=== PATIENT | male | born 1945 | race Caucasian/White ===

== ENCOUNTER 2017-12-27 02:57 | Emergency (ER) | payer MEDICARE, OTHER ==
[~2017-12-27] VITALS: Ht 188 cm; Wt 91.0 kg
[~2017-12-27 02:57] MED LIST: Z.0.NO CURRENT MEDS
[2017-12-27 03:08] VITALS: BP 124/70; PULSE 58; RESP 18; TEMP 98.1; O2SAT 98
--- NOTE | 2017-12-27 04:06 | PD ---
HPI Chief Complaint: Abdominal Pain Time Seen by Provider: 04:02 Travel History International Travel<30 days: No Contact w/Intl Traveler<30days: No Traveled to known affect area: No History of Present Illness HPI Patient is a 72-year-old male presents emergency department for evaluation of right lower quadrant abdominal pain. No nausea no vomiting. States started last night he has been fairly severe, no alleviating or exacerbating factors elicited. Patient states never had any surgeries in his belly but her that this pain could be from his appendix and wanted to be checked out for. Symptoms are moderate, right lower quadrant, no radiation, associated signs and symptoms as above PFSH Past Medical History Medical History: Denies Significant Hx Blood Disorders: No Cancer: No Cardiovascular Problems: No High Cholesterol: Yes Diminished Hearing: No Endocrine: No Genitourinary: No Immune Disorder: No Musculoskeletal: Yes Neurologic: No Respiratory: No Tetanus Vaccination: Unknown Influenza Vaccination: No Past Surgical History Abdominal Surgery: Yes (COLON RESECTION,HERNIA REPAIR) Other Surgery: Yes (vasectomy) Social History Alcohol Use: Yes (rare occ) Tobacco Use: Yes Substance Use: No Allergies-Medications (Allergen,Severity, Reaction): Coded Allergies: cephalexin (Unverified Allergy, Severe, headache, 12/27/17) Reported Meds & Prescriptions Reported Meds & Active Scripts Active Reported No Current Meds (Miscellaneous Medication) Misc Review of Systems Except as stated in HPI: all other systems reviewed are Neg Physical Exam Narrative GENERAL: Well-developed well-nourished, no obvious distress. SKIN: Focused skin assessment warm/dry. HEAD: Atraumatic. Normocephalic. EYES: Pupils equal and round. No scleral icterus. No injection or drainage. ENT: No nasal bleeding or discharge. Mucous membranes pink and moist. NECK: Trachea midline. No JVD. CARDIOVASCULAR: Regular rate and rhythm. No murmur appreciated. RESPIRATORY: No accessory muscle use. Clear to auscultation. Breath sounds equal bilaterally. GASTROINTESTINAL: Abdomen soft, minimally tender in the right lower, nondistended. Hepatic and splenic margins not palpable. No rebound no percussive tenderness. Table mom negative. CVA tenderness negative Genitourinary: Grossly normal male genitalia nontender peer MUSCULOSKELETAL: No obvious deformities. No clubbing. No cyanosis. No edema. NEUROLOGICAL: Awake and alert. No obvious cranial nerve deficits. Motor grossly within normal limits. Normal speech. PSYCHIATRIC: Appropriate mood and affect; insight and judgment normal. Data Data Last Documented VS Vital Signs Date Time Temp Pulse Resp B/P (MAP) Pulse Ox O2 Delivery O2 Flow Rate FiO2 12/27/17 09:20 Orders Orders Complete Blood Count With Diff (12/27/17 04:02) Comprehensive Metabolic Panel (12/27/17 04:02) Ct Abd/Pel W Iv Contrast(Rout) (12/27/17 04:02) Iv Access Insert/Monitor (12/27/17 04:02) Ecg Monitoring (12/27/17 04:02) Oximetry (12/27/17 04:02) Sodium Chloride 0.9% Flush (Ns Flush) (12/27/17 04:15) Iohexol 350 Inj (Omnipaque 350 Inj) (12/27/17 06:11) Urinalysis - C+S If Indicated (12/27/17 07:06) Ed Discharge Order (12/27/17 08:44) Labs Laboratory Tests Test 12/27/17 04:10 12/27/17 07:30 White Blood Count 7.1 TH/MM3 Red Blood Count 4.82 MIL/MM3 Hemoglobin 16.1 GM/DL Hematocrit 45.8 % Mean Corpuscular Volume 95.0 FL Mean Corpuscular Hemoglobin 33.3 PG Mean Corpuscular Hemoglobin Concent 35.1 % Red Cell Distribution Width 14.2 % Platelet Count 174 TH/MM3 Mean Platelet Volume 7.5 FL Neutrophils (%) (Auto) 58.6 % Lymphocytes (%) (Auto) 32.6 % Monocytes (%) (Auto) 6.8 % Eosinophils (%) (Auto) 1.5 % Basophils (%) (Auto) 0.5 % Neutrophils # (Auto) 4.2 TH/MM3 Lymphocytes # (Auto) 2.3 TH/MM3 Monocytes # (Auto) 0.5 TH/MM3 Eosinophils # (Auto) 0.1 TH/MM3 Basophils # (Auto) 0.0 TH/MM3 CBC Comment DIFF FINAL Differential Comment Blood Urea Nitrogen 20 MG/DL Creatinine 0.92 MG/DL Random Glucose 93 MG/DL Total Protein 7.0 GM/DL Albumin 3.7 GM/DL Calcium Level 9.2 MG/DL Alkaline Phosphatase 82 U/L Aspartate Amino Transf (AST/SGOT) 13 U/L Alanine Aminotransferase (ALT/SGPT) 16 U/L Total Bilirubin 0.3 MG/DL Sodium Level 141 MEQ/L Potassium Level 4.2 MEQ/L Chloride Level 107 MEQ/L Carbon Dioxide Level 25.8 MEQ/L Anion Gap 8 MEQ/L Estimat Glomerular Filtration Rate 81 ML/MIN Urine Color YELLOW Urine Turbidity CLEAR Urine pH 7.5 Urine Specific [place] GREATER THAN 1.050 Urine Protein TRACE mg/dL Urine Glucose (UA) NEG mg/dL Urine Ketones NEG mg/dL Urine Occult Blood NEG Urine Nitrite NEG Urine Bilirubin NEG Urine Urobilinogen LESS THAN 2.0 MG/DL Urine Leukocyte Esterase NEG Urine RBC 1 /hpf Urine WBC 5 /hpf Microscopic Urinalysis Comment CULT NOT INDICATED MDM Medical Decision Making Medical Screen Exam Complete: Yes Emergency Medical Condition: Yes Differential Diagnosis Musculoskeletal pain, inguinal pain, hernia, appendicitis. Narrative Course Patient room to the emergency department, he appears well in no obvious distress. CAT scan read pending I anticipate negative and afterwards can go home with symptomatic management. Discussed with oncoming provider at 0700. Follow-up CAT scan reviewed and disposition appropriately Phil Grayson MD Dec 27, 2017 04:06
[2017-12-27 04:09] VITALS: O2SAT 98
[2017-12-27 04:15] VITALS: BP 121/73; PULSE 52; RESP 14; O2SAT 96
[2017-12-27] MEDS ORDERED: SODIUM CHLORIDE 0.9% FLUSH 10 ML FLUSH IV FLUSH PRN (04:15)
[2017-12-27 04:38] LABS: AUTOMATED NEUTROPHIL # 4.2 TH/MM3 (1.8-7.7); BASOPHIL % 0.5 % (0.0-2.0); EOSINOPHIL # 0.1 TH/MM3 (0-0.4); EOSINOPHIL % 1.5 % (0.0-4.0); HEMATOCRIT 45.8 % (39.0-51.0); HEMOGLOBIN 16.1 GM/DL (13.0-17.0); LYMPH % 32.6 % (9.0-44.0); LYMPHOCYTE # 2.3 TH/MM3 (1.0-4.8); MEAN CORPUSCULAR HEMOGLOBIN 33.3 PG (27.0-34.0); MEAN CORPUSCULAR HGB CONC 35.1 % (32.0-36.0); MEAN PLATELET VOLUME 7.5 FL (7.0-11.0); MONO % 6.8 % (0.0-8.0); MONOCYTE # 0.5 TH/MM3 (0-0.9); NEUT % 58.6 % (16.0-70.0); PLATELET COUNT 174 TH/MM3 (150-450); RED BLOOD COUNT 4.82 MIL/MM3 (4.50-5.90); RED CELL DISTRIBUTION WIDTH 14.2 % (11.6-17.2); WHITE BLOOD COUNT 7.1 TH/MM3 (4.0-11.0)
[2017-12-27 04:55] LABS: ALBUMIN 3.7 GM/DL (3.4-5.0); ALT (GPT) 16 U/L (12-78); AST (GOT) 13 U/L (15-37); BICARBONATE 25.8 MEQ/L (21.0-32.0); BLOOD UREA NITROGEN 20 MG/DL (7-18); CALCIUM 9.2 MG/DL (8.5-10.1); CHLORIDE 107 MEQ/L (98-107); CREATININE 0.92 MG/DL (0.60-1.30); GLOMERULAR FILTRATION RATE 81 ML/MIN (>89); GLUCOSE,RANDOM 93 MG/DL (74-106); SODIUM (NA) 141 MEQ/L (136-145)
[2017-12-27 04:58] LABS: ALKALINE PHOSPHATASE 82 U/L (45-117); TOTAL BILIRUBIN ADULT 0.3 MG/DL (0.2-1.0)
[2017-12-27] MEDS ORDERED: IOHEXOL 350 MG/ML 10 ML VIAL (for RAD DIAG) IVCONTRAST ONE (06:11)
--- NOTE | 2017-12-27 07:06 | PD ---
Physical Exam Date Seen by Provider: Dec 27, 2017 Time Seen by Provider: 07:05 Narrative The patient is a 72-year-old male who was initially evaluate by the previous physician. Please refer to the initial history, physical, diagnostic evaluation , treatment modality plan. The patient was signed out at [address] the abdomen and pelvis pending for right lower quadrant abdominal pain. Data Data Last Documented VS Vital Signs Date Time Temp Pulse Resp B/P (MAP) Pulse Ox O2 Delivery O2 Flow Rate FiO2 12/27/17 04:15 52 14 121/73 (89) 96 Room Air 12/27/17 03:08 98.1 Orders Orders Complete Blood Count With Diff (12/27/17 04:02) Comprehensive Metabolic Panel (12/27/17 04:02) Ct Abd/Pel W Iv Contrast(Rout) (12/27/17 04:02) Iv Access Insert/Monitor (12/27/17 04:02) Ecg Monitoring (12/27/17 04:02) Oximetry (12/27/17 04:02) Sodium Chloride 0.9% Flush (Ns Flush) (12/27/17 04:15) Iohexol 350 Inj (Omnipaque 350 Inj) (12/27/17 06:11) Urinalysis - C+S If Indicated (12/27/17 07:06) Labs Laboratory Tests Test 12/27/17 04:10 12/27/17 07:30 White Blood Count 7.1 TH/MM3 Red Blood Count 4.82 MIL/MM3 Hemoglobin 16.1 GM/DL Hematocrit 45.8 % Mean Corpuscular Volume 95.0 FL Mean Corpuscular Hemoglobin 33.3 PG Mean Corpuscular Hemoglobin Concent 35.1 % Red Cell Distribution Width 14.2 % Platelet Count 174 TH/MM3 Mean Platelet Volume 7.5 FL Neutrophils (%) (Auto) 58.6 % Lymphocytes (%) (Auto) 32.6 % Monocytes (%) (Auto) 6.8 % Eosinophils (%) (Auto) 1.5 % Basophils (%) (Auto) 0.5 % Neutrophils # (Auto) 4.2 TH/MM3 Lymphocytes # (Auto) 2.3 TH/MM3 Monocytes # (Auto) 0.5 TH/MM3 Eosinophils # (Auto) 0.1 TH/MM3 Basophils # (Auto) 0.0 TH/MM3 CBC Comment DIFF FINAL Differential Comment Blood Urea Nitrogen 20 MG/DL Creatinine 0.92 MG/DL Random Glucose 93 MG/DL Total Protein 7.0 GM/DL Albumin 3.7 GM/DL Calcium Level 9.2 MG/DL Alkaline Phosphatase 82 U/L Aspartate Amino Transf (AST/SGOT) 13 U/L Alanine Aminotransferase (ALT/SGPT) 16 U/L Total Bilirubin 0.3 MG/DL Sodium Level 141 MEQ/L Potassium Level 4.2 MEQ/L Chloride Level 107 MEQ/L Carbon Dioxide Level 25.8 MEQ/L Anion Gap 8 MEQ/L Estimat Glomerular Filtration Rate 81 ML/MIN Urine Color YELLOW Urine Turbidity CLEAR Urine pH 7.5 Urine Specific [place] GREATER THAN 1.050 Urine Protein TRACE mg/dL Urine Glucose (UA) NEG mg/dL Urine Ketones NEG mg/dL Urine Occult Blood NEG Urine Nitrite NEG Urine Bilirubin NEG Urine Urobilinogen LESS THAN 2.0 MG/DL Urine Leukocyte Esterase NEG Urine RBC 1 /hpf Urine WBC 5 /hpf Microscopic Urinalysis Comment CULT NOT INDICATED MDM Medical Record Reviewed: Yes Supervised Visit with NOY: No Interpretation(s) Last Impressions Abdomen/Pelvis CT 12/27/17 0402 Signed Impressions: Service Date/Time: Friday, December 27, 2017 06:02 - CONCLUSION: Cholelithiasis. No evidence of cholecystitis. No evidence of inflammatory process within the abdomen or pelvis.. Katelyn Murillo MD Laboratory Tests Test 12/27/17 04:10 12/27/17 07:30 White Blood Count 7.1 TH/MM3 Red Blood Count 4.82 MIL/MM3 Hemoglobin 16.1 GM/DL Hematocrit 45.8 % Mean Corpuscular Volume 95.0 FL Mean Corpuscular Hemoglobin 33.3 PG Mean Corpuscular Hemoglobin Concent 35.1 % Red Cell Distribution Width 14.2 % Platelet Count 174 TH/MM3 Mean Platelet Volume 7.5 FL Neutrophils (%) (Auto) 58.6 % Lymphocytes (%) (Auto) 32.6 % Monocytes (%) (Auto) 6.8 % Eosinophils (%) (Auto) 1.5 % Basophils (%) (Auto) 0.5 % Neutrophils # (Auto) 4.2 TH/MM3 Lymphocytes # (Auto) 2.3 TH/MM3 Monocytes # (Auto) 0.5 TH/MM3 Eosinophils # (Auto) 0.1 TH/MM3 Basophils # (Auto) 0.0 TH/MM3 CBC Comment DIFF FINAL Differential Comment Blood Urea Nitrogen 20 MG/DL Creatinine 0.92 MG/DL Random Glucose 93 MG/DL Total Protein 7.0 GM/DL Albumin 3.7 GM/DL Calcium Level 9.2 MG/DL Alkaline Phosphatase 82 U/L Aspartate Amino Transf (AST/SGOT) 13 U/L Alanine Aminotransferase (ALT/SGPT) 16 U/L Total Bilirubin 0.3 MG/DL Sodium Level 141 MEQ/L Potassium Level 4.2 MEQ/L Chloride Level 107 MEQ/L Carbon Dioxide Level 25.8 MEQ/L Anion Gap 8 MEQ/L Estimat Glomerular Filtration Rate 81 ML/MIN Urine Color YELLOW Urine Turbidity CLEAR Urine pH 7.5 Urine Specific [place] GREATER THAN 1.050 Urine Protein TRACE mg/dL Urine Glucose (UA) NEG mg/dL Urine Ketones NEG mg/dL Urine Occult Blood NEG Urine Nitrite NEG Urine Bilirubin NEG Urine Urobilinogen LESS THAN 2.0 MG/DL Urine Leukocyte Esterase NEG Urine RBC 1 /hpf Urine WBC 5 /hpf Microscopic Urinalysis Comment CULT NOT INDICATED Differential Diagnosis Differential diagnosis includes appendicitis, diverticulitis, muscle strain, testicular torsion, UTI, pyelonephritis. Narrative Course The patient was initially evaluated by the previous physician. Please refer to the initial history, physical, diagnostic evaluation, and treatment modality plan. The patient signed a [address] of the abdomen and pelvis pending. The patient's white count is unremarkable. CMP is unremarkable. UA is negative. CT the abdomen and pelvis is negative. Vitals are within normal limits. Patient is stable for outpatient follow-up. Diagnosis Primary Impression: Abdominal pain Qualified Codes: R10.31 - Right lower quadrant pain Patient Instructions: General Instructions Additional Instruction: Follow-up with your primary physician. Please provide the patient a copy of his CT results and lab results at discharge. Diet as tolerated. Tylenol and/ or ibuprofen as needed for pain. Return if symptoms worsen or progress. Med/Other Pt SpecificInfo: No Change to Meds Disposition: 01 DISCHARGE HOME Condition: Stable Andres Fleming MD Dec 27, 2017 07:06
--- NOTE | 2017-12-27 07:09 | RADRPT ---
EXAM DATE/TIME: 12/27/2017 06:02 [facility] COMPARISON: No previous studies available for comparison. INDICATIONS : Right sided abdominal pain. IV CONTRAST: 100 cc Omnipaque 350 (iohexol) IV ORAL CONTRAST: No oral contrast ingested. RADIATION DOSE: CTDIvol (mGy) MEDICAL HISTORY : Hernia. SURGICAL HISTORY : Colon resection. Hernia repair. ENCOUNTER: Initial ACUITY: 1 day PAIN SCALE: 4/10 LOCATION: Right abdomen TECHNIQUE: Volumetric scanning of the abdomen and pelvis was performed. Using automated exposure control and ad justment of the mA and/or kV according to patient size, radiation dose was kept as low as reasonably achievable to obtain optimal diagnostic quality images. DICOM format image data is available electro nically for review and comparison. FINDINGS: LOWER LUNGS: The visualized lower lungs are clear. LIVER: Homogeneous density without lesion. There is no dilation of the biliary tree. There is a densely jacoby cified 1.5 cm stone identified within the lumen of the gallbladder. No evidence of wall thickening or adjacent fluid. SPLEEN: Normal size without lesion. PANCREAS: Within normal limits. KIDNEYS: Normal in size and shape. There is no mass, stone or hydronephrosis. ADRENAL GLANDS: Within normal limits. VASCULAR: There is no aortic aneurysm. BOWEL/MESENTERY: The stomach, small bowel, and colon demonstrate no acute abnormality. There is no free intraperitone al air or fluid. ABDOMINAL WALL: Within normal limits. RETROPERITONEUM: There is no lymphadenopathy. BLADDER: No wall thickening or mass. REPRODUCTIVE: Within normal limits. INGUINAL: There is no lymphadenopathy or hernia. MUSCULOSKELETAL: Within normal limits for patient age. CONCLUSION: Cholelithiasis. No evidence of cholecystitis. No evidence of inflammatory process within the abdomen or pelvis.. Katelyn Murillo MD on December 27, 2017 at 7:03 Board Certified Radiologist. This report was verified electronically.
[2017-12-27 08:40] LABS: BILIRUBIN, URINE NEG (NEG); BLOOD, URINE NEG (NEG); GLUCOSE,URINE NEG (NEG); KETONE, URINE NEG (NEG); NITRITE,URINE NEG (NEG); PH, URINE 7.5 (5.0-8.5); URINE COLOR YELLOW (YELLW/STRAW); URINE LEUKOCYTE ESTERASE NEG (NEG)
== END 2017-12-27 09:22 | disposition home or self-care (01) ==
LOC: NEPE 02:57
DX: R10.31 Right lower quadrant pain (principal); K80.20 Calculus of gallbladder without cholecystitis without obstruction; E78.00 Pure hypercholesterolemia, unspecified; Z88.8 Allergy status to other drugs, medicaments and biological substances; Z72.0 Tobacco use
CPT/HCPCS: 74177; 80053; 81001; 85025; 99284; Q9967